=== PATIENT | female | born 2005 | race Two or more races ===

== ENCOUNTER 2024-01-08 21:10 | Observation (INO) | payer MEDICAID, SELFPAY ==
[2024-01-08] VITALS (16 sets, daily range): BP systolic 117; BP diastolic 57; PULSE 71–94; O2SAT 95–99; BMI 25.2
--- NOTE | 2024-01-08 22:14 | XR_ITS ---
Examination: Complete OB ultrasound greater than 14 weeks Date and time of exam: January 08, 2024 1043 hrs. Indications: Pelvic pain today Findings: Viable intrauterine single fetus with single amniotic sac presentation breech Cardiac motion 137 BPM Placenta anterior grade 1 Umbilical cord insertion seen Amniotic fluid index 12 cc gadolinium Cervix 4.9 cm Ovaries obscured by bowel gas. Composite estimated gestational age based on BPD, head circumference, abdominal circumference, femur length is 22 weeks 2 days Estimated weight 435 g. Survey of intracranial anatomy, spinal anatomy, abdominal anatomy, four-chamber heart performed with no abnormalities identified. Impression: Viable intrauterine gestation breech presentation Placenta anterior grade 1 no abruption.
[2024-01-08 23:24] LABS: Basophils % (Auto) 0 % (0-2.5); Eosinophils % (Auto) 0 % (0-10); Hemoglobin 10.6 g/dL (12.0-16.0); Immature Granulocytes % (Auto) 1 % (0-0); Immature Granulocytes Auto 0.05 Thou/mm3 (0.00-0.00); Lymphocytes # (Auto) 1.8 Thou/mm3 (1.0-4.8); Lymphocytes % (Auto) 17 % (10-50); Mean Corpuscular HGB Conc 35.3 g/dl (31.0-37.0); Mean Corpuscular Hemoglobin 32.1 pg (25.0-35.0); Mean Corpuscular Volume 91 fL (80-100); Monocytes # (Auto) 0.8 Thou/mm3 (0.0-0.8); Monocytes % (Auto) 7 % (0-12); Neutrophils # (Auto) 8.1 Thou/mm3 (1.8-7.7); Neutrophils % (Auto) 75 % (37-80); Nucleated Red Blood Cell % 0 /100 WBC (0); Platelet Count 255 Thou/mm3 (140-440); RDW Standard Deviation 44.9 fL (36.4-46.3); White Blood Count 10.8 Thou/mm3 (4.5-11.0)
[2024-01-08 23:44] LABS: Alanine Aminotransferase 19 U/L (10-49); Albumin, Serum 3.9 gm/dL (3.5-5.0); Alkaline Phosphatase 59 U/L (46-116); Anion Gap 7 (7-16); Aspartate Amino Transferase 18 U/L (0-34); BUN/Creatinine Ratio 18 Ratio (12-20); Bilirubin,Total 0.3 mg/dL (0.3-1.2); Blood Urea Nitrogen 9 mg/dL (9-23); Calcium 9.5 mg/dL (8.3-10.6); Calcium (Corrected) 9.6 mg/dL (8.5-10.1); Carbon Dioxide 23.3 mMol/L (20.0-31.0); Chloride 108 mMol/L (98-107); Creatinine (Component) 0.5 mg/dL (0.6-1.3); Estimated Creatinine Clearance 149.9 mL/min (>60); Glucose 77 mg/dL (74-106); Osmolality,Calculated 273 (275-295); Potassium 3.5 mMol/L (3.4-5.1); Sodium 138 mMol/L (136-145); Total Protein 5.9 gm/dL (5.7-8.2); eGFR > 60 See Note
[2024-01-08 23:57] LABS: Fibrinogen 344 mg/dL (175-375)
[2024-01-09] VITALS (7 sets, daily range): PULSE 86–105; O2SAT 93–98
[2024-01-09] MEDS: RINGERS LACTATED 1000 ML 500 ML 999 ML IV (00:01)
[2024-01-09 00:33] LABS: Amphetamine/Metham Scrn,Ur OB Negative (Negative); Benzoylecgonine Screen, Ur OB Negative (Negative); Opiate Screen,Urine OB Negative (Negative); THC Screen,Urine OB Negative (Negative)
--- NOTE | 2024-01-09 01:07 | PC.NURSE ---
MFTI 2 FOR DECRASED movement less than 34 weeks. Patient left ambulatory and in good condition, accompained by significant other
[2024-01-09 15:52] LABS: Syphilis Nonreactive (Nonreactive)
== END 2024-01-09 00:44 | disposition home or self-care (01) ==
PROVIDERS: Admitting Provider Student in an Organized Health Care Education/Training Program; PCP Family Medicine; Visit Provider Student in an Organized Health Care Education/Training Program
DX: O36.8120 Decreased fetal movements, second trimester, not applicable or unspecified (principal); O32.1XX0 Maternal care for breech presentation, not applicable or unspecified; Z3A.23 23 weeks gestation of pregnancy
CPT/HCPCS: 36415; 59025; 59899; 76805; 80053; 80307; 85025; 85384; 86780; 86850; 86900; 86901; J7120

== ENCOUNTER 2024-02-05 20:37 | Observation (INO) | payer MEDICAID, SELFPAY ==
[2024-02-05] VITALS (10 sets, daily range): BP systolic 106; BP diastolic 57; PULSE 83–92; RESP 17–98; TEMP 36.6; O2SAT 98; BMI 25.4
--- NOTE | 2024-02-05 21:21 | P.TNLD_ITS ---
Documentation for date of: 02/05/24 Hx History Provider: Amara Lockwood Attending Provider: Amara Lockwood : 1 Term: 0 : 0 Number of Living Children: 0 Abortions: Spontaneous & Elective: 0 Hx Section: No Hx Vaginal Delivery Post : No Gestation Info Final LEONORA: 05/04/24 Gestational Age (weeks): 27 Gestational Age (days): 2 Complaint Complaint Complaint: felt like fainting today evening and was just doing normal work in the kitchen , dizziness but did not pass out or fall .felt ringing in her R ear . Has gastrochisis his and goes to Dr William Tyler for care . 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 denies leaking or bleeding Skin: normal color , no rash Musculoskeletal: normal movements and gait Psycho-Social: cooperative Contractions Evaluation Contractions Monitor Mode: External Contraction Frequency: none Heart Monitoring Heart Rate Assessment FHR Baseline: 155 Movement Reported: Yes Assessment Comment: patient is only 27.2 weeks and NST is reactive at 10x10 and is appropriate for gestational age Amniotic Membranes Amniotic Membranes Amniotic Membrane Status: Intact Social risk screen Social Risk Screening Observed or verbalized signs of abuse or neglect: No RN Notes Disposition Dispostition: Home
[2024-02-05 22:09] LABS: Basophils % (Auto) 0 % (0-2.5); Eosinophils % (Auto) 0 % (0-10); Hematocrit 30.9 % (36.0-46.0); Hemoglobin 10.9 g/dL (12.0-16.0); Immature Granulocytes % (Auto) 0 % (0-0); Immature Granulocytes Auto 0.04 Thou/mm3 (0.00-0.00); Lymphocytes # (Auto) 1.7 Thou/mm3 (1.0-4.8); Lymphocytes % (Auto) 17 % (10-50); Mean Corpuscular HGB Conc 35.3 g/dl (31.0-37.0); Mean Corpuscular Hemoglobin 32.5 pg (25.0-35.0); Mean Corpuscular Volume 92 fL (80-100); Monocytes # (Auto) 0.6 Thou/mm3 (0.0-0.8); Monocytes % (Auto) 6 % (0-12); Neutrophils # (Auto) 7.6 Thou/mm3 (1.8-7.7); Neutrophils % (Auto) 76 % (37-80); Nucleated Red Blood Cell % 0 /100 WBC (0); Platelet Count 238 Thou/mm3 (140-440); RDW Standard Deviation 44.1 fL (36.4-46.3); Red Blood Count 3.35 Miln/mm3 (4.00-5.20); White Blood Count 10.1 Thou/mm3 (4.5-11.0)
[2024-02-05 22:34] LABS: Thyroid Stimulating Hormone 0.51 uIU/mL (0.55-4.78)
== END 2024-02-05 22:49 | disposition home or self-care (01) ==
PROVIDERS: Admitting Provider Obstetrics & Gynecology; Visit Provider Obstetrics & Gynecology
DX: O26.892 Other specified pregnancy related conditions, second trimester (principal); Z3A.27 27 weeks gestation of pregnancy; R42 Dizziness and giddiness
CPT/HCPCS: 36415; 59025; 59899; 84443; 85025

== ENCOUNTER 2024-03-08 23:45 | Observation (INO) | payer MEDICAID, SELFPAY ==
[2024-03-09 00:25] LABS: Collection Type, Urine Clean Catch
[2024-03-09 07:28] LABS: Amorphous Crystals,Urine Present (Absent); Bacteria,Urine 1+; Bilirubin,Urine Negative (Negative); Blood,Urine Negative (Negative); Color,Urine Lt-Yellow (Lt Yel-Yel); Glucose, Urine Negative (Negative); Ketones,Urine Negative (Negative); Leukocyte Esterase,Urine Positive (Negative); Nitrite,Urine Negative (Negative); Protein,Urine Trace (Neg - Trace); RBC,Urine 5 /hpf (0-3); Specific Gravity,Urine 1.014 (1.001-1.035); Squamous Epithelial Cell,Urine 9 /hpf (0-5); Urobilinogen,Urine Negative mg/dL (0.0-1.0); WBC,Urine 6 /hpf (0-5)
[2024-03-09 07:31] LABS: Clarity,Urine Hazy (Clear/Hazy)
--- NOTE | 2024-03-09 08:11 | PC.NURSE ---
[facility] 0[facility] 0700.
[2024-03-09 15:11] LABS: FFN Specimen Descripton Other; Fetal Fibronectin Negative (Negative)
== END 2024-03-09 03:40 | disposition home or self-care (01) ==
PROVIDERS: Admitting Provider Obstetrics & Gynecology; Visit Provider Student in an Organized Health Care Education/Training Program
DX: O26.899 Other specified pregnancy related conditions, unspecified trimester (principal); Z3A.00 Weeks of gestation of pregnancy not specified; R10.30 Lower abdominal pain, unspecified
CPT/HCPCS: 59899; 81001; 82731

== ENCOUNTER 2024-11-30 00:36 | Emergency (ER) | payer MEDICAID, SELFPAY ==
[2024-11-30 00:37] VITALS: BMI 24.9
[2024-11-30 00:46] VITALS: BP 144/83; PULSE 77; RESP 18; TEMP 36.7; O2SAT 97
--- NOTE | 2024-11-30 01:01 | XR_ITS ---
Examination: Abdomen sonogram, Limited Date and time of exam: November 30, 2024, 0117 hours INDICATIONS: Epigastric pain beginning March 2024. Technique: Real-time melchor scale transabdominal sonographic images of the upper abdomen obtained. Findings: Gallbladder sludge, possible gallbladder sludge ball, no gallstones Gallbladder 1.2 cm Common bile duct 0.2 cm Pancreatic head 2.2 cm Liver 13 cm no focal liver lesions Normal hepatopetal portal venous Patent IVC IMPRESSION: Gallbladder sludge, negative for cholelithiasis, negative for cholecystitis
--- NOTE | 2024-11-30 01:02 | EDNOTE_ITS ---
ED Abdominal Pain RME/HPI General Chief Complaint: Back Pain/Injury Stated complaint: BACK PAIN, SORE THROAT Time seen by provider: 11/30/24 00:39 Arrival date/time: 11/30/24 00:36 19-year-old female reports with complaints of epigastric abdominal pain for several months. Patient is 8 months but reports not getting menses over the past 4 months. Patient states that she is not nursing and has been taking home test but they have all been negative. She reports some nausea but no vomiting no diarrhea constipation blood or mucus in stools dysuria urinary urgency frequency or hematuria. Patient has not been evaluated or taking any medications for stomach pain Limitations: no limitations Related Data Home Medications ?Medication ?Instructions ?Recorded ?Confirmed prenat.vits,honey,[id number] 1 tab PO 1XD 01/08/24 0 03/09/24 Allergies Allergy/AdvReac Type Severity Reaction Status Date / Time No Known Allergies Allergy Verified 11/30/24 00:40 Review of Systems Constitutional Constitutional: Denies chills, Denies fever(s) and Denies headache(s) ENT Ears, Nose, Mouth, and Throat: Denies dizziness and Denies headache(s) Cardiovascular Cardiovascular: Denies chest pain and Denies dyspnea Respiratory Respiratory: Denies cough and Denies dyspnea Gastrointestinal Gastrointestinal: Reports abdominal pain, Denies loose stools, Denies melena, Denies nausea and Denies vomiting Genitourinary Genitourinary: Reports amenorrhea, Denies difficulty voiding and Denies pelvic pain Musculoskeletal Musculoskeletal: Denies back pain and Denies deformity Integumentary/Breasts Skin/Breast: Denies rash and Denies skin pain Neurologic Neurologic: Denies dizziness and Denies headache(s) Hematologic/Lymphatic Hematologic/Lymphatic: Denies easy bleeding and Denies easy bruising Past Medical History Past Medical History CARDIAC: Negative Congestive Heart Failure RESPIRATORY: Positive Asthma; Negative Chronic Obstructive Pulmonary Disease (COPD) GENITOURINARY: Negative Renal Disease ENDOCRINE: Negative Diabetes Mellitus Type 1 or Diabetes Mellitus Type 2 Surgical History SURGICAL: Negative Section Social History SMOKING STATUS: Never smoker ED Exam General Limitations: Present no limitations General appearance: Present alert and in no apparent distress Neck Neck exam: Present normal inspection, full ROM and trachea midline Chest Chest inspection: Present normal inspection and symmetric chest wall rise Respiratory Respiratory exam: Present normal lung sounds bilaterally Cardiovascular Cardiovascular exam: Present regular rate, normal rhythm and normal heart sounds Abdominal Exam Abdominal exam: Present soft and normal bowel sounds Extremities Exam Extremities exam: Present normal inspection and full ROM Back Exam Back exam: Present normal inspection and full ROM Neurological Exam Neurological exam: Present alert, oriented X3 and CN II-XII intact Psychiatric Psychiatric exam: Present normal affect and normal mood Skin Skin exam: Present warm, dry, intact and normal color Course Course Course Narrative: 19-year-old female 8 months reports with complaints of epigastric abdominal pain that radiates to the back patient is urinalysis is negative for evidence of infection lipase hCG negative CMP is also unremarkable CBC is unrem arkable for evidence of infection. Abdominal ultrasound shows some mild sludge in the gallbladder but otherwise benign imaging. Differential diagnosis includes GERD, gastritis, gastroenteritis, anxiety. Patient is stable nontoxic- appearing with stable vital signs she will be discharged with referral to primary care provider advised to hydrate and return to emergency department if symptoms should worsen Quality Measures none Orders Category Date Time Status US abdomen limited Stat Exams 11/30/24 01:01 Taken CBC Stat Lab 11/30/24 01:20 Completed CMP [Comprehensive Metabolic Panel] Stat Lab 11/30/24 01:20 Completed HCG,Qualitative Serum Stat Lab 11/30/24 01:20 Completed Lipase Stat Lab 11/30/24 01:20 Completed UA, C/S IF [Urinalysis, C/S if Indicated] Stat Lab 11/30/24 02:27 Completed Vital Signs Vital signs: Vital Signs Temperature 98.1 F 11/30/24 00:46 Pulse Rate 77 11/30/24 00:46 Respiratory Rate 18 11/30/24 00:46 Blood Pressure 144/83 H 11/30/24 00:46 Pulse Oximetry (%) 97 11/30/24 00:46 Oxygen Delivery Method Room Air 11/30/24 00:46 Abdominal Pain MDM Patient data External records reviewed:: None Clinical information provided by:: patient Social determinants that could affect healthcare access:: none Patient has the following chronic illnesses:: none How is presenting disease/condition affected by chronic disease/condition?: no chronic disease Evaluation data The following diagnostics were reviewed and interpreted by me:: lab results and radiology exam(s) Lab and/or radiology exams considered but not ordered:: none Interpretation Summary: negative labs and imaging Medications / Prescriptions Medications or Prescriptions considered but not ordered:: none Medication administrations:: none Consultations Consultation(s) initiated? (list below): No Diagnosis Differential diagnosis abdominal pain: abdominal pain, constipation, gastroenteritis and pancreatitis Most likely diagnosis given after review of the tests above:: abdominal pain Admission Indicated Admission indicated?: not indicated Admission Request Was there a request for admission?: No Disposition Plan Disposition Plan: Discharge Discharge Attestation Discharge Attestation: The patient and all family members were given an opportunity to ask questions and understood the discharge instructions. Discharge instructions specifically effects, indications for sooner follow up or return to the emergency department, and the expected course of current diagnosis. Patient condition: Stable Discharge Plan Plan Patient Disposition: HOME (Self Care) Prescriptions/Referrals Prescriptions/Med Rec: No Action Vitamin Tablet 1 tab PO 1XD Patient Comments: s Rx Instructions: 1 tab daily Referrals: Chacho Varela MD [Primary Care Provider, [facility]] - In 1 week Problem List Clinical Impression: Abdominal pain Patient/Caregiver Discharge Instructions Discharge Activity: activity as tolerated Education Materials: Abdominal Pain Additional Instructions: Your lab tests were normal you should follow-up with your primary care provider for further evaluation also be mindful of the foods you eat limit foods that are high in fat and/or cholesterol and drink plenty of water. Return to the emergency department if symptoms should worsen Print Language: Uruguayan Stand Alone Forms: Beth Award Info., Patient Portal Info Letter
[2024-11-30 01:30] LABS: Basophils # (Auto) 0.0 Thou/mm3 (0.0-0.2); Basophils % (Auto) 0 % (0-2.5); Eosinophils # (Auto) 0.1 Thou/mm3 (0.0-0.5); Eosinophils % (Auto) 1 % (0-10); Hematocrit 39.9 % (36.0-46.0); Hemoglobin 13.4 g/dL (12.0-16.0); Immature Granulocytes Auto 0.02 Thou/mm3 (0.00-0.00); Lymphocytes # (Auto) 3.7 Thou/mm3 (1.0-4.8); Lymphocytes % (Auto) 39 % (10-50); Mean Corpuscular HGB Conc 33.6 g/dl (31.0-37.0); Mean Corpuscular Hemoglobin 30.2 pg (25.0-35.0); Mean Corpuscular Volume 90 fL (80-100); Monocytes # (Auto) 0.7 Thou/mm3 (0.0-0.8); Monocytes % (Auto) 8 % (0-12); Neutrophils # (Auto) 4.8 Thou/mm3 (1.8-7.7); Neutrophils % (Auto) 52 % (37-80); Nucleated Red Blood Cell # 0.00 Thou/mm3 (0.00-0.00); Nucleated Red Blood Cell % 0 /100 WBC (0); Platelet Count 252 Thou/mm3 (140-440); RDW Standard Deviation 42.5 fL (36.4-46.3); Red Blood Count 4.44 Miln/mm3 (4.00-5.20); White Blood Count 9.4 Thou/mm3 (3.6-11.0)
[2024-11-30 01:39] LABS: HCG,Qualitative Serum Negative
[2024-11-30 01:46] LABS: Alanine Aminotransferase 28 U/L (10-49); Albumin, Serum 4.7 gm/dL (3.5-5.0); Albumin/Globulin Ratio 2.1 (1.2-2.2); Alkaline Phosphatase 85 U/L (46-116); Anion Gap 9 (7-16); Aspartate Amino Transferase 29 U/L (0-34); BUN/Creatinine Ratio 10 Ratio (12-20); Bilirubin,Total 0.3 mg/dL (0.3-1.2); Blood Urea Nitrogen 7 mg/dL (9-23); Calcium 9.4 mg/dL (8.3-10.6); Calcium (Corrected) 9.4 mg/dL (8.5-10.1); Carbon Dioxide 26.6 mMol/L (20.0-31.0); Chloride 108 mMol/L (98-107); Creatinine (Component) 0.7 mg/dL (0.6-1.3); Estimated Creatinine Clearance 105.6 mL/min (>60); Globulin 2.2 gm/dL (2.3-3.5); Glucose 89 mg/dL (74-106); Lipase 24 U/L (12-53); Osmolality,Calculated 283 (275-295); Potassium 4.3 mMol/L (3.4-5.1); Sodium 144 mMol/L (136-145); Total Protein 6.9 gm/dL (5.7-8.2); eGFR > 60 See Note
[2024-11-30 02:33] LABS: Collection Type, Urine Clean Catch
[2024-11-30 02:47] LABS: Bilirubin,Urine Negative (Negative); Blood,Urine Negative (Negative); Clarity,Urine Clear (Clear/Hazy); Color,Urine Yellow (Lt Yel-Yel); Culture Indicated,Urine Not Indicated; Glucose, Urine Negative (Negative); Ketones,Urine Negative (Negative); Leukocyte Esterase,Urine Positive (Negative); Nitrite,Urine Negative (Negative); PH,Urine 6.0 (5.0-7.0); Protein,Urine Negative (Neg - Trace); RBC,Urine 2 /hpf (0-3); Specific Gravity,Urine 1.030 (1.001-1.035); Squamous Epithelial Cell,Urine 8 /hpf (0-5); Urobilinogen,Urine 2.0 mg/dL (0.0-1.0); WBC,Urine 4 /hpf (0-5)
--- NOTE | 2024-11-30 03:05 | PRELIM_ITS ---
Ultrasound abdomen limited. November 30, 2024 at 0117 hours Clinical history: Epigastric abdominal pain. Compared with prior study dated September 24, 2023. Findings: The liver is normal in echogenicity. No evidence of free fluid or mass. No intrahepatic biliary ductal dilatation. The main portal vein is patent and demonstrates hepatopetal flow. Hepatic veins are patent. Echogenic debris is identified in the lumen of the gallbladder, possibly representing sludge ball. No gallbladder calculus, wall thickening or pericholecystic fluid is demonstrated. The common bile duct is normal in caliber at 1.8 mm. The pancreas is unremarkable to the extent visualized. The inferior vena cava is patent. Impression: Gallbladder sludge. No evidence of cholelithiasis, wall thickening, pericholecystic fluid or biliary dilatation. Report Electronically Signed By: Brennen Iverson 11/30/2024 3:05:22 AM [EST]
== END 2024-11-30 03:41 | disposition home or self-care (01) ==
PROVIDERS: Physician Assistant; Emergency Provider Emergency Medicine; PCP Family Medicine
DX: R10.9 Unspecified abdominal pain (principal)
CPT/HCPCS: 36415; 76705; 80053; 81001; 83690; 84703; 85025; 99281

== ENCOUNTER 2025-02-07 01:59 | Emergency (ER) | payer MEDICAID, SELFPAY ==
[2025-02-07 02:02] VITALS: BMI 25.2
[2025-02-07 02:18] LABS: Collection Type, Urine Clean Catch
[2025-02-07 02:30] LABS: HCG Qualitative,Urine Negative
[2025-02-07 02:39] LABS: Bilirubin,Urine Negative (Negative); Blood,Urine Negative (Negative); Clarity,Urine Clear (Clear/Hazy); Color,Urine Colorless (Lt Yel-Yel); Culture Indicated,Urine Not Indicated; Glucose, Urine Negative (Negative); Ketones,Urine Negative (Negative); Leukocyte Esterase,Urine Positive (Negative); Nitrite,Urine Negative (Negative); PH,Urine 7.5 (5.0-7.0); Protein,Urine Negative (Neg - Trace); RBC,Urine 1 /hpf (0-3); Specific Gravity,Urine 1.016 (1.001-1.035); Squamous Epithelial Cell,Urine 3 /hpf (0-5); Urobilinogen,Urine Negative mg/dL (0.0-1.0); WBC,Urine 1 /hpf (0-5)
[2025-02-07 03:14] VITALS: BP 103/60; PULSE 100; RESP 18; TEMP 37.3; O2SAT 98
[2025-02-07 03:15] VITALS: BMI 26.2
[2025-02-07 04:09] VITALS: BP 117/77; PULSE 98; RESP 16; TEMP 38.6; O2SAT 98
--- NOTE | 2025-02-07 04:20 | PD.EDURI ---
Upper Respiratory Inf. RME/HPI General Chief Complaint: Flu Like Symptoms Stated Complaint: BODYACHES,COUGH Time Seen by Provider: 02/07/25 04:11 Source: patient Arrival date/time: 02/07/25 01:59 19-year-old female with no known medical history presents to the emergency room with a chief complaint of bodyaches and cough x 3 days Mode of arrival: ambulatory Limitations: no limitations Related Data Home Medications ?Medication ?Instructions ?Recorded ?Confirmed prenat.vits,honey,[id number] 1 tab PO 1XD 01/08/24 03/09/24 Previous Rx's ?Medication ?Instructions ?Recorded acetaminophen 325 mg capsule 650 mg (2 x 325 mg) PO QID PRN 02/07/25 fever or pain 7 days #30 caps albuterol sulfate 90 mcg/actuation 2 puff inhalation Q6H PRN 02/07/25 aerosol inhaler (Ventolin HFA) shortness of breath or wheezing #6.7 grams amoxicillin 500 mg capsule 500 mg PO BID 7 days #14 caps 02/07/25 Allergies Allergy/AdvReac Type Severity Reaction Status Date / Time No Known Allergies Allergy Verified 02/07/25 02:00 Review of Systems Review of Systems Systems Reviewed: All systems reviewed, normal except as documented Constitutional Constitutional: Reports system reviewed and no additional complaints, except as documented, Denies fatigue, Denies fever(s), Denies headache(s) and Denies weakness Eyes Eyes: Reports system reviewed and no additional complaints, except as documented, Denies blurry vision and Denies change in vision ENT Ears, Nose, Mouth, and Throat: Reports system reviewed and no additional complaints, except as documented, Denies otalgia, Denies headache(s), Denies nasal congestion, Denies throat swelling and Denies vertigo Cardiovascular Cardiovascular: Reports system reviewed and no additional complaints, except as documented, Denies chest pain, Reports dyspnea and Denies dyspnea on exertion Respiratory Respiratory: Reports system reviewed and no additional complaints, except as documented, Reports chest congestion, Reports cough, Reports dyspnea, Denies dyspnea on exertion and Denies wheezing Gastrointestinal Gastrointestinal: Reports system reviewed and no additional complaints, except as documented, Denies abdominal pain, Denies cramping, Denies nausea and Denies vomiting Genitourinary Genitourinary: Reports system reviewed and no additional complaints, except as documented Musculoskeletal Musculoskeletal: Reports system reviewed and no additional complaints, except as documented and Denies back pain Integumentary/Breasts Skin/Breast: Reports system reviewed and no additional complaints, except as documented and Denies wounds Neurologic Neurologic: Reports system reviewed and no additional complaints, except as documented, Denies confusion, Denies headache(s), Denies lack of coordination, Denies vertigo and Denies weakness Psychiatric Psychiatric: Reports system reviewed and no additional complaints, except as documented, Denies anxiety, Denies confusion, Denies depression, Denies paranoia, Denies suicidal ideation and Denies tactile hallucinations Endocrine Endocrine: Reports system reviewed and no additional complaints, except as documented and Denies fatigue Hematologic/Lymphatic Hematologic/Lymphatic: Reports system reviewed and no additional complaints, except as documented and Denies lymphadenopathy Allergic/Immunologic Allergic/Immunologic: Reports system reviewed and no additional complaints, except as documented, Denies throat swelling, Denies urticaria and Denies wheezing Past Medical History Past Medical History CARDIAC: Negative Congestive Heart Failure RESPIRATORY: Positive Asthma; Negative Chronic Obstructive Pulmonary Disease (COPD) GENITOURINARY: Negative Renal Disease ENDOCRINE: Negative Diabetes Mellitus Type 1 or Diabetes Mellitus Type 2 Surgical History SURGICAL: Negative Section Social History SMOKING STATUS: Never smoker ED Exam General Limitations: Present no limitations General appearance: Present alert and in no apparent distress Head Head exam: Present atraumatic Eye Eye exam: Present normal appearance, PERRL and EOMI ENT ENT exam: Present normal exam, normal oropharynx and mucous membranes moist Neck Neck exam: Present normal inspection, full ROM and trachea midline Chest Chest inspection: Present normal inspection and symmetric chest wall rise Respiratory Respiratory exam: Present normal lung sounds bilaterally; Absent respiratory distress, wheezes, stridor, accessory muscle use or prolonged expiratory phase Cardiovascular Cardiovascular exam: Present regular rate, normal rhythm and normal heart sounds; Absent bradycardia, tachycardia or irregular rhythm Abdominal Exam Abdominal exam: Present soft and normal bowel sounds; Absent tenderness Extremities Exam Extremities exam: Present normal inspection and full ROM Back Exam Back exam: Present normal inspection and full ROM Neurological Exam Neurological exam: Present alert, oriented X3 and CN II-XII intact Psychiatric Psychiatric exam: Present normal affect and normal mood Skin Skin exam: Present warm, dry, intact and normal color Course Quality Measures none Orders Category Date Time Status Bedside COVID-19 Antigen Test NOW Care 02/07/25 02:16 Completed Bedside Influenza A&B Antigen Test NOW Care 02/07/25 02:16 Completed XR chest 1V portable Stat Exams 02/07/25 04:21 Taken HCG Qualitative,Urine Stat Lab 02/07/25 02:11 Completed UA, C/S IF [Urinalysis, C/S if Indicated] Stat Lab 02/07/25 02:11 Completed Acetaminophen Tab [Tylenol ES Tab] Med 02/07/25 04:11 Discontinued 1,000 mg PO X1 ONE Vital Signs Vital signs: Vital Signs Temperature 99.1 F 02/07/25 03:14 Pulse Rate 100 02/07/25 03:14 Respiratory Rate 18 02/07/25 03:14 Blood Pressure 103/60 02/07/25 03:14 Pulse Oximetry (%) 98 02/07/25 03:14 Oxygen Delivery Method Room Air 02/07/25 03:14 Upper Respiratory Infection MDM Narrative MDM Narrative:: 19-year-old female with no known medical history presents to the emergency room with a chief complaint of bodyaches and cough x 3 days Patient is febrile at 101.4 ?F. She is not tachycardic and not tachypneic. O2 saturation is 98% on room air Physical examination shows clear bilateral lung sounds there is no wheezing or any abnormal breath sounds Patient states she has phlegm and sputum. Chest x-ray was completed and was interpreted by me and x-ray appears to be clear. Due to the patient's fever and sputum I decided to treat her for bacterial pneumonia Patient was discharged and educated to follow-up with primary care provider in the next 24 to 48 hours and return to the emergency room for any evidence of worsening signs or symptoms Patient data External records reviewed:: [facility] previous records Clinical information provided by:: patient Social determinants that could affect healthcare access:: none Patient has the following chronic illnesses:: No chronic illness How is presenting disease/condition affected by chronic disease/condition?: no chronic disease Evaluation data The following diagnostics were reviewed and interpreted by me:: lab results and radiology exam(s) Lab and/or radiology exams considered but not ordered:: Labs and radiology exams considered and ordered Interpretation Summary: Chest x-ray- Medications / Prescriptions Medications or Prescriptions considered but not ordered:: Medication given Medication administrations:: Medication Administration History Discontinued Medications Acetaminophen (Acetaminophen 500 Mg Tablet) 1,000 mg PO X1 ONE Stop: 02/07/25 04:12 Last Admin: 02/07/25 04:38 Dose: 1,000 mg Documented By: CB Medication given Consultations Consultation(s) initiated? (list below): No Diagnosis Upper Respiratory Differential Diagnosis: upper respiratory infection, viral infection, bronchitis and influenza Most likely diagnosis given after review of the tests above:: Upper respiratory infection Admission Indicated Admission indicated?: not indicated Admission Request Was there a request for admission?: No Disposition Plan Disposition Plan: Discharge Discharge Attestation Discharge Attestation: The patient and all family members were given an opportunity to ask questions and understood the discharge instructions. Discharge instructions specifically effects, indications for sooner follow up or return to the emergency department, and the expected course of current diagnosis. Patient condition: Stable Discharge Plan Plan Patient Disposition: HOME (Self Care) Discharge Disposition comment: Stable Prescriptions/Referrals Prescriptions/Med Rec: New acetaminophen 325 mg capsule 650 mg PO QID PRN (Reason: fever or pain) 7 Days Qty: 30 0RF amoxicillin 500 mg capsule 500 mg PO BID 7 Days Qty: 14 0RF albuterol sulfate [Ventolin HFA] 90 mcg/actuation HFA aerosol inhaler 2 puff inhalation Q6H PRN (Reason: shortness of breath or wheezing) Qty: 6.7 0RF No Action Vitamin Tablet 1 tab PO 1XD Patient Comments: s Rx Instructions: 1 tab daily Referrals: Chacho Varela MD [Primary Care Provider, [facility]] - In 1 week Problem List Clinical Impression: Upper respiratory infection Patient/Caregiver Discharge Instructions Education Materials: Preventing Common Respiratory ..., ED URI, Viral, No Abx (Adult) Additional Instructions: Please follow-up with your primary care provider in the next 24 to 48 hours Antibiotics are sent to your pharmacy please pick them up and take them as indicated For any evidence of worsening signs or symptoms return to the emergency room immediate Print Language: Bengali Stand Alone Forms: Beth Award Info., Work/School Release, Patient Portal Info Letter GOOD/SAFIA Supervising Physician GOOD/SAFIA Supervising Physician: Dr. Pisano
--- NOTE | 2025-02-07 04:21 | XR_ITS ---
EXAMINATION: PA chest single view TECHNIQUE: Upright PA chest single view Date and time: February 07, 2025, 0427 hours INDICATIONS: Body aches coughing beginning 3 days ago FINDINGS: Normal heart size Lungs are clear. Osseous structures are intact IMPRESSION: No active disease
[2025-02-07 04:38] VITALS: TEMP 38.6
[2025-02-07] MEDS: ACETAMINOPHEN 500 MG TABLET 1000 MG PO (04:38)
[2025-02-07 05:09] VITALS: RESP 16
== END 2025-02-07 05:10 | disposition home or self-care (01) ==
PROVIDERS: Emergency Provider Emergency Medicine; PCP Family Medicine
DX: J06.9 Acute upper respiratory infection, unspecified (principal)
CPT/HCPCS: 71045; 81001; 81025; 87502; 87635; 99283; A9270